=== PATIENT | male | born 1955 ===

== ENCOUNTER → 2018-04-12 | Outpatient (CLI) | payer BC ==
--- NOTE | 2018-04-12 13:51 | CT ---
EXAMINATION TYPE: CT chest w con DATE OF EXAM: 04/12/2018 COMPARISON: None HISTORY: 62-year-old male with Lung nodule TECHNIQUE: Contiguous axial scanning of the chest after the administration of 100 ml mL of Isovue 300 . Coronal/sagittal reconstructions performed. CT DLP: 551mGycm. Automatic exposure control utilized for a dose reduction. FINDINGS: Heart normal size without pericardial effusion. Ascending aorta mildly ectatic at 3.6 cm. Conventional arch vessel branching anatomy. No thoracic lymphadenopathy. Trace bilateral gynecomastia incidentally noted. Some mild strandy atelectasis in the lower lungs. There is a 3 mm subpleural nodule in the posterolateral left lower lobe, axial image 50. Benign etiol ogy is suspected. Second area of 3 mm nodularity peripheral left midlung, axial image 33 Visualized upper abdomen shows some cortical cysts in the upper pole right kidney measuring up to 1.5 cm. Bones: Mild pectus excavatum deformity. IMPRESSION: A couple tiny 3 mm pulmonary nodules on the left. A benign etiology is suspected. One-year follow-up can be performed to reassess. This exam can be reviewed with addendum if the patient previously had a n outside exam that demonstrated a suspicious pulmonary nodule.
== END ==
LOC: RADCTMAIN 13:06
PROVIDERS: ATTEND Family Medicine
DX: R91.8 Other nonspecific abnormal finding of lung field (principal)
CPT/HCPCS: 71260; Q9967

== ENCOUNTER → 2019-04-27 | Outpatient (CLI) | payer MEDICARE ==
[2019-04-27 14:17] LABS: African American GFR (CKD) >90 (>60 ml/min/1.73 sqM); Blood Urea Nitrogen 21 mg/dL (9-20)
--- NOTE | 2019-05-01 17:10 | CT ---
EXAMINATION TYPE: CT chest w con DATE OF EXAM: 04/27/2019 COMPARISON: Prior chest CT 04/12/2018, 09/21/2016 HISTORY: Previous abnormal exam lung gomez, Lung nodule CT DLP: 266.60 mGycm Automated exposure control for dose reduction was used. CONTRAST: CT scan of the chest is performed with IV Contrast, patient injected with 100 ml mL of Isovue 300. FINDINGS: LUNGS: The lungs are stable, there is no concerning parenchymal mass or nodule identified. Small nodu les at the lung bases are unchanged. There is no pleural effusion or pneumothorax seen. The trache obronchial tree is patent. MEDIASTINUM: There are no greater than 1 cm hilar or mediastinal lymph nodes. No pericardial effusi on is seen. AORTA: No additional significant abnormality is seen. OTHER: No additional significant abnormality is seen. IMPRESSION: Stable benign CT.
== END | disposition home or self-care (01) ==
LOC: RADCTMAIN 13:21
PROVIDERS: ATTEND Family Medicine
DX: R91.8 Other nonspecific abnormal finding of lung field (principal)
CPT/HCPCS: 82565; 84520; 71260; Q9967

== ENCOUNTER → 2020-01-29 | Outpatient (CLI) | payer MEDICARE ==
[2020-01-29 19:12] LABS: African American GFR (CKD) >90 (>60 ml/min/1.73 sqM); Blood Urea Nitrogen 28 mg/dL (9-20); Non-African American GFR(CKD) >90 (>60 ml/min/1.73 sqM)
--- NOTE | 2020-01-29 22:40 | CT ---
EXAMINATION TYPE: CT chest w con DATE OF EXAM: 01/29/2020 COMPARISON: 04/27/2019, 04/12/2018 HISTORY: Follow up for lung nodule. CT DLP: 259.5 mGycm, Automated exposure control for dose reduction was used. CONTRAST: Performed injected with 100ml mL of Isovue 300. TECHNIQUE: Axial images were obtained at 5 mm thick sections. Reconstructed images are reviewed on [employer] computer in the coronal plane. FINDINGS: Portion of the thyroid visualized is normal. No suspicious lung nodules or focal infiltrates are present. The tiny subpleural nodule along the pos terior lateral left lung base is stable. A 0.4 cm nodule, series 4 image 37, is essentially stable fr om comparison. No enlarged mediastinal or hilar adenopathy is evident. The ascending aorta diameter at the level o f the main pulmonary artery is 3.8 cm. The main pulmonary artery diameter at the bifurcation is 2.[address] sections are obtained through the upper abdomen. Abdomen is essentially unremarkable. IMPRESSIONS: 1. Stable small left lung nodules from March 2018. 2. No suspicious acute changes.
== END ==
LOC: RADCTMAIN 18:44
PROVIDERS: ATTEND Family Medicine
DX: R91.8 Other nonspecific abnormal finding of lung field (principal)
CPT/HCPCS: 82565; 84520; 71260; 36415; Q9967

== ENCOUNTER → 2021-05-05 | Outpatient (CLI) | payer MEDICARE ==
[2021-05-05 18:49] LABS: African American GFR (CKD) >90 (>60 ml/min/1.73 sqM); Blood Urea Nitrogen 22 mg/dL (9-20); Non-African American GFR(CKD) 85 (>60 ml/min/1.73 sqM)
--- NOTE | 2021-05-05 19:56 | CT ---
EXAMINATION TYPE: CT chest w con DATE OF EXAM: 05/05/2021 COMPARISON: 01/29/2020, 04/12/2018 HISTORY: lung nodule CT DLP: 833.5 mGycm Automated exposure control for dose reduction was used. TECHNIQUE: CT scan of the chest is performed with IV Contrast, patient injected with 100 mL of Isovue 300. MIP Images are created on CT scanner and reviewed. 3D reconstructed images are created on an independent workstation and reviewed. FINDINGS: LUNGS: The lungs are grossly clear, there is no concerning parenchymal mass or nodule identified. T here is a 2 mm nodule in the left lower lobe and subpleural 2 mm nodule essentially unchanged from pr ior exam. No new pulmonary nodules. Underlying mild emphysematous changes suggested. Correlate for CO PD. There is no pleural effusion or pneumothorax seen. The tracheobronchial tree is patent. MEDIASTINUM: There are no greater than 1 cm hilar or mediastinal lymph nodes. No pericardial effusi on is seen. OTHER: Hypertrophic and degenerative changes spine. IMPRESSION: 1. Stable sub-5 mm tiny left lower lobe pulmonary nodules. Given they are stable dating back to 2018 they are benign.
--- NOTE | 2021-05-06 09:21 | CT ---
EXAMINATION TYPE: CT abdomen wo/w con DATE OF EXAM: 05/05/2021 COMPARISON: None HISTORY: right flank pain CT DLP: 833.5 mGycm Automated exposure control for dose reduction was used. TECHNIQUE: Helical acquisition of images was performed from the lung bases through the top of iliac crest to include entire abdomen. CONTRAST: Performed with Oral Contrast and with IV Contrast, patient injected with 100 mL of Isovue 300. FINDINGS: LUNG BASES: No significant abnormality is appreciated. LIVER/GB: Very mild central biliary dilation. No definite gallstone.. PANCREAS: No significant abnormality is seen. SPLEEN: No significant abnormality is seen. ADRENALS: No significant abnormality is seen. KIDNEYS: Mild right hydronephrosis. No nephrolithiasis. Hydroureter to level visualized in the pelvis . Hypodense lesion involving the right kidney are too small to characterize with the exception of a 2 .1 cm upper pole right renal lesion Hounsfield unit measurement of 8 compatible with simple cyst.. BOWEL: Nonspecific LYMPH NODES: No significant abnormality is seen. OSSEOUS STRUCTURES: Hypertrophic and degenerative changes spine. FREE AIR: No free air is visualized. OTHER: Visualized aorta of normal caliber. Atherosclerotic changes noted. IMPRESSION: 1. Mild right hydronephrosis. Unfortunately imaging is only of the abdomen does not include the pelvi s to determine if there is a distal ureteral calcification. No calcifications within the [id number] w. 2. Simple right renal cyst. 3. Very mild central biliary ductal dilation consider follow-up ultrasound of the gallbladder and rig ht upper quadrant.
== END | disposition home or self-care (01) ==
LOC: RADCTMAIN 18:01
PROVIDERS: ATTEND Family Medicine
DX: N13.30 Unspecified hydronephrosis (principal); N28.1 Cyst of kidney, acquired; K83.8 Other specified diseases of biliary tract
CPT/HCPCS: 82565; 84520; 71260; 74170; 36415; Q9967

== ENCOUNTER → 2021-09-09 | Outpatient (CLI) | payer MEDICARE ==
[2021-09-09 14:48] LABS: African American GFR (CKD) >90 (>60 ml/min/1.73 sqM); Blood Urea Nitrogen 20 mg/dL (9-20); Non-African American GFR(CKD) 89 (>60 ml/min/1.73 sqM)
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
== END | disposition home or self-care (01) ==
LOC: RADCTMAIN 13:46
PROVIDERS: ATTEND Family Medicine
DX: S06.0X9A Concussion with loss of consciousness of unspecified duration, initial encounter (principal); W22.8XXA Striking against or struck by other objects, initial encounter
CPT/HCPCS: 82565; 84520; 70460; 36415; Q9967

== ENCOUNTER → 2022-02-09 | Outpatient (CLI) | payer MEDICARE ==
--- NOTE | 2022-02-09 13:13 | CT ---
EXAMINATION TYPE: CT soft tissue neck wo con CT DLP: 341.1 mGycm, Automated exposure control for dose reduction was used. DATE OF EXAM: 02/09/2022 12:50 PM COMPARISON: CT brain 09/09/2021, CT chest 05/05/2021. CLINICAL INDICATION:Male, 66 years old with history of R22.1 Swelling, mass and lump neck; right neck pain. TECHNIQUE: Standard CT of the neck without administration of contrast. Axial sections with coronal a nd sagittal reformats were obtained. Evaluation is limited due to lack of IV contrast. FINDINGS: Brain: Visualized portions are grossly unremarkable. Orbits: Unremarkable Sinuses: Grossly unremarkable. Spaces of the neck: Clear and symmetric. Coarse calcification along the left base of the tongue. Musculoskeletal: Degenerative disc disease changes of the visualized spine are present most prominent ly at C4-C7. Posterior disc osteophyte complexes demonstrated at C4-C5 and C5-C6 with suggested mild spinal canal narrowing. Straightening of the cervical spine which may be due to patient position vers us muscle spasm. Lymph nodes: Multiple nonenlarged lymph nodes are seen along both anterior chains of the neck. Vascular structures: Minimal atherosclerotic calcifications of the internal carotid arteries. Thoracic Inlet/airway: Airway is patent. The lung apices are clear. Soft tissues/Thyroid: Thyroid and remainder of the soft tissues are unremarkable. Other: none. IMPRESSION 1. No acute process within the limitations of a noncontrast exam. 2. Mild degenerative disc disease.
== END | disposition home or self-care (01) ==
LOC: RADCTMAIN 12:30
PROVIDERS: ATTEND Family Medicine
DX: R22.1 Localized swelling, mass and lump, neck (principal); M50.323 Other cervical disc degeneration at C6-C7 level
CPT/HCPCS: 70490

== ENCOUNTER → 2022-10-15 | Outpatient (CLI) | payer MEDICARE ==
--- NOTE | 2022-10-15 14:50 | NM ---
EXAMINATION TYPE: NM bone scan whole body DATE OF EXAM: 10/15/2022 COMPARISON: NONE HISTORY: M25.551 Delayed whole-body scanning was performed following the injection of 22.9 mCi Tc 99m MDP. Images acq uired 3 hours post injection. FINDINGS: There is degenerative uptake seen about the shoulders, sternoclavicular joints, L5-S1 levels as well as the bilateral hips and knees. No intense uptake to suggest bony metastatic disease or acute fractu re. IMPRESSION: Degenerative uptake
== END | disposition home or self-care (01) ==
LOC: RADNMMAIN 10:45
PROVIDERS: ATTEND Family Medicine
DX: M19.011 Primary osteoarthritis, right shoulder (principal); M25.551 Pain in right hip
CPT/HCPCS: 78306; A9503

== ENCOUNTER → 2023-11-16 | Outpatient (CLI) | payer MEDICARE ==
[2023-11-16 16:48] LABS: African American GFR (CKD) >90 (>60 ml/min/1.73 sqM); Blood Urea Nitrogen 30 mg/dL (9-20); Non-African American GFR(CKD) 84 (>60 ml/min/1.73 sqM)
--- NOTE | 2023-11-16 17:43 | CT ---
EXAMINATION TYPE: CT abdomen pelvis w con CT DLP: 441.6 mGycm, Automated exposure control for dose reduction was used. DATE OF EXAM: 11/16/2023 5:31 PM COMPARISON: None CLINICAL INDICATION:Male, 68 years old with history of K81.9 CHOLECYSTITIS, UNSPECIFIED; RUQ abdomina l pain radiates towards back x 5 weeks TECHNIQUE: Axial CT abdomen pelvis w con;Sagittal and coronal reformats were created on a separate w orkstation. Contrast used:100 cc mL of Isovue 300 with IV Contrast, (none if empty) Oral contrast used: with Oral Contrast (none if empty) FINDINGS: LOWER CHEST: Unremarkable ABDOMEN LIVER: Unremarkable GALLBLADDER AND BILE DUCTS: Unremarkable. PANCREAS: Unremarkable. SPLEEN: Unremarkable. ADRENAL GLANDS: Unremarkable. KIDNEYS AND URETERS: No evidence of hydronephrosis or renal calculus. The ureters are unremarkable. PELVIS BLADDER: Unremarkable REPRODUCTIVE: Prostate is enlarged in size measuring 5.5 cm in transverse dimension. ABDOMEN & PELVIS STOMACH AND BOWEL: No evidence of bowel obstruction. Moderate to large amount stool within the colon. The appendix is not definitively visualized. PERITONEUM/RETROPERITONEUM: No evidence of pneumoperitoneum or free fluid. VASCULATURE: No evidence of aortic aneurysm. MUSCULOSKELETAL: No acute osseous abnormalities LYMPH NODES: No gross evidence for lymphadenopathy. SOFT TISSUE/ABDOMINAL WALL: Unremarkable IMPRESSION: 1. No acute right upper quadrant process to explain the patient's pain. No cholelithiasis or evidenc e of cholecystitis. No evidence for obstructive uropathy or renal calculus. 2. Prostatomegaly, correlate serum PSA. 3. Moderate to large amount stool in the colon.
== END | disposition home or self-care (01) ==
LOC: RADCTMAIN 15:33
PROVIDERS: ATTEND Family Medicine
DX: N40.0 Benign prostatic hyperplasia without lower urinary tract symptoms (principal); K81.9 Cholecystitis, unspecified
CPT/HCPCS: 82565; 84520; 74177; 36415; Q9967

== ENCOUNTER → 2024-01-27 | Outpatient (CLI) | payer MEDICARE ==
--- NOTE | 2024-01-27 15:43 | MR ---
EXAMINATION TYPE: MR Prostate wo/w con DATE OF EXAM: 01/27/2024 10:10 AM COMPARISON: 11/16/2023, 10/15/2022. CLINICAL INDICATION:Male, 68 years old with history of C61 MALIGNANT NEOPLASM OF PROSTATE; Abnormal P SA elevation, prostate cancer. TECHNIQUE: Multi-planar, multi-sequence imaging of the pelvis is performed prior to and following the uncomplicated administration of bolus intravenous gadolinium. CONTRAST: 7 Gadavist Interpretive Criteria: PI-RADS v2.1 SERUM PSA: 6-24 = 7.26 SURGICAL PATHOLOGY: 05/19/2020 Positive biopsy left lateral apex and right posterior. FINDINGS: Prostatic dimensions: 4.5 x 5.3 x 3.6 cm. "Bullet" Volume:56.20 (PSA density=0.13 ng/mL/mL) CENTRAL GLAND (Central and Transition Zones/CZ+TZ): Multiple bilateral, heterogenous appearing hypertrophic stromal nodules, without suspicious lesion. M edian lobe hypertrophy with protrusion into the base of the bladder. (PI-RADS 2) PERIPHERAL ZONE (PZ): Bilateral linear, indistinct wedgelike areas of low ADC, and low T2 signal, No evidence of masslike a bnormality, or localized perfusional hypervascularity, to further suggest a focus of clinically signi ficant prostate cancer. (PI-RADS 2) SEMINAL VESICLES (SV): Symmetric and unremarkable. PERIPROSTATIC TISSUES: Unremarkable. LYMPH NODES: No enlarged pelvic lymph node. REMAINING PELVIS: Bladder wall is within normal limits given distention. No abnormal free or organized intrapelvic fluid collection. No pathologic bowel dilation or mural thickening. No hernia visualized OSSEOUS STRUCTURES: No suspicious osseous abnormality. IMPRESSION: 1. No specific features for high-risk prostate cancer. Maximum PI-RADS score: 2. 2. Moderate BPH, estimated gland volume 56.20 mL. 3. No suspicious osseous lesion. No lymphadenopathy. No evidence of prostate adenocarcinoma involving the periprostatic tissues.
== END | disposition home or self-care (01) ==
LOC: RADMRIMAIN 08:54
PROVIDERS: ATTEND Radiology Radiation Oncology
DX: C61 Malignant neoplasm of prostate (principal); N40.0 Benign prostatic hyperplasia without lower urinary tract symptoms
CPT/HCPCS: 72197; A9585

== ENCOUNTER → 2024-02-06 | Outpatient (CLI) | payer MEDICARE ==
[2024-02-06 16:31] LABS: HGB 14.2 g/dL (13.0-17.0); MCH 32.3 pg (27.0-32.0); MCHC 33.8 g/dL (32.0-37.0); MCV 95.5 FL (80.0-97.0); Mean Platelet Volume 10.4 FL (9.5-12.2); NRBC Per 100 WBC 0 X 10*3/uL (0.00-0.01); Platelet Count 223 X 10*3/uL (140-440); RDW 12.6 % (11.5-14.5); WBC 4.62 X 10*3/uL (4.50-10.00)
[2024-02-06 17:26] LABS: Chol/HDL Ratio 2.01 Ratio; Estradiol 38.4 pg/mL; LDL Cholesterol,Calculated 64.8 mg/dL (0.0-131.0); VLDL Calculation 9.02 mg/dL (5.00-40.00)
[2024-02-06 17:43] LABS: ALT 32 U/L (10-49); AST 26 U/L (14-35); Albumin 4.5 g/dL (3.8-4.9); Albumin/Globulin Ratio 2.14 Ratio (1.60-3.17); Alkaline Phosphatase 66 U/L (41-126); Bilirubin, Conjugated 0.41 mg/dL (0.20-0.40); Bilirubin,Unconjugated 1.49 mg/dL (0.20-1.00); Blood Urea Nitrogen 14.7 mg/dL (9.0-27.0); Calcium 9.2 mg/dL (8.7-10.3); Carbon Dioxide 27.9 mmol/L (21.6-31.8); Chloride 102 mmol/L (96-109); Globulin 2.1 g/dL (1.6-3.3); Glucose 103 mg/dL (70-110); Potassium 4.9 mmol/L (3.5-5.5); Sodium 140 mmol/L (135-145); Total Bilirubin 1.9 mg/dL (0.3-1.2); Total Protein 6.6 g/dL (6.2-8.2)
== END | disposition home or self-care (01) ==
LOC: LABWHC1 08:08
PROVIDERS: ATTEND Surgery
DX: E29.1 Testicular hypofunction (principal)
CPT/HCPCS: 36415; 80048; 80061; 80076; 82088; 82670; 83835; 84153; 84244; 84403; 84436; 84443; 84479; 85027

== ENCOUNTER → 2024-02-20 | Outpatient (CLI) | payer MEDICARE ==
--- NOTE | 2024-04-04 14:10 | NM ---
Patient Wally Solorio ID [id number] Order # EXAMINATION TYPE: NM bone scan whole body DATE OF EXAM: 02/28/2024 COMPARISON: NONE HISTORY: Prostate cancer Delayed whole-body scanning was performed following the injection of 24.1 mCi Tc 99m MDP. Images wer e acquired 4 hours post injection. FINDINGS: The focus of radiotracer within the posterior left mid cervical spine. This is nonspecific and can be related to degenerative change. Solitary metastasis is unusual. There is mild diffuse uptake noted at the knees and ankles and elbows likely related to degenerative joint changes. There is mild uptake along the left aspect of the L4 region on the frontal projection. On oblique spo t images no suspicious abnormality identified to correspond to this finding. This is nonspecific. Cor relate with plain film or MRI. Otherwise, No suspicious uptake within the lumbar spine to suggest met astasis. On the frontal projection there is some mild ill-defined uptake within the right femoral neck. This i s not identified on spot oblique views. IMPRESSION: 1. No definite suspicious area for metastasis. See above discussion for a couple of nonspecific findi ngs within the lower lumbar spine and right hip. 2. Suspected degenerative changes posterior left mid cervical spine
== END | disposition home or self-care (01) ==
LOC: RADNMMAIN 07:14
PROVIDERS: ATTEND Radiology Radiation Oncology
DX: C61 Malignant neoplasm of prostate (principal)
CPT/HCPCS: 78306; A9503

== ENCOUNTER → 2024-07-12 | Outpatient (CLI) | payer MEDICARE ==
[2024-07-12 07:22] LABS: African American GFR (CKD) >90 (>60 ml/min/1.73 sqM); Blood Urea Nitrogen 18 mg/dL (9-20); Non-African American GFR(CKD) 87 (>60 ml/min/1.73 sqM)
--- NOTE | 2024-07-12 11:55 | NM ---
EXAMINATION TYPE: NM bone scan whole body DATE OF EXAM: 07/12/2024 COMPARISON: 02/20/2024 CLINICAL INDICATION: Male, 69 years old with history of C61 MALIGNANT NEOPLASM OF PROSTATE; TECHNIQUE: Delayed whole-body scanning was performed following the injection of 23.1 mCi Tc 99m MDP. Images acquired 3 hours post injection. FINDINGS: Degenerative tracer activity at both shoulders and along the posterior elements of the left upper cer vical spine. Some periodontal disease is suggested. Suspect degenerative endplate change toward the l eft at L4-L5. Some focal increased activity at the right acetabular roof likely on a degenerative bas is. No suspicious distribution of tracer is identified. IMPRESSION: Scattered degenerative tracer activity as noted above. No scintigraphic evidence for osseous metastat ic disease. [facility], , 07/12/2024 11:53 AM
--- NOTE | 2024-07-13 19:09 | CT ---
EXAMINATION TYPE: CT abdomen pelvis wo/w con DATE OF EXAM: 07/12/2024 8:23 AM COMPARISON: 11/16/2023 CLINICAL INDICATION: Male, 69 years old with history of C61 MALIGNANT NEOPLASM OF PROSTATE; Hx prosta te ca, routine follow up TECHNIQUE: Axial CT abdomen pelvis wo/w con;Sagittal and coronal reformats were created on a [employer] workstation. Contrast used:100 mL of Isovue 300 with IV Contrast, (none if empty) Oral contrast used: with Oral Contrast (none if empty) CT DLP: 738.60 mGycm, Automated exposure control for dose reduction was used. FINDINGS: LOWER CHEST: Unremarkable ABDOMEN LIVER: Unremarkable GALLBLADDER AND BILE DUCTS: Unremarkable. PANCREAS: Unremarkable. SPLEEN: Unremarkable. ADRENAL GLANDS: Unremarkable. KIDNEYS AND URETERS: No evidence of hydronephrosis or renal calculus. The ureters are unremarkable. Simple appearing right renal cyst. PELVIS BLADDER: No evidence for wall thickening or mass given limitations of exam. REPRODUCTIVE: High density biopsy spacer material noted posterior to the prostate gland anterior to t he rectum. Gland measures up to 1.8 cm in transverse dimension. ABDOMEN & PELVIS STOMACH AND BOWEL: No evidence of bowel obstruction. Large amount of stool in the colon. PERITONEUM/RETROPERITONEUM: No evidence of pneumoperitoneum or free fluid. VASCULATURE: No evidence of aortic aneurysm. MUSCULOSKELETAL: No acute osseous abnormalities. Mild disc degeneration changes are present throughou t the thoracolumbar spine. Suspected bone island in the bilateral femoral heads. No suspicious osseou s lesions identified.. LYMPH NODES: No gross evidence for lymphadenopathy. SOFT TISSUE/ABDOMINAL WALL: Unremarkable IMPRESSION: 1. Postbiopsy changes around the prostate gland, No lymphadenopathy identified. No suspicious osseou s lesions. 2. Prostatomegaly. 3. Large amount stool throughout colon. [facility], , 07/13/2024 7:06 PM
== END | disposition home or self-care (01) ==
LOC: RADNMMAIN 06:20
PROVIDERS: ATTEND Radiology Radiation Oncology
DX: C61 Malignant neoplasm of prostate (principal); N40.0 Benign prostatic hyperplasia without lower urinary tract symptoms; R19.5 Other fecal abnormalities
CPT/HCPCS: 82565; 84520; 74178; 36415; 78306; A9503; Q9967

== ENCOUNTER → 2024-10-09 | Outpatient (CLI) | payer MEDICARE | END | disposition home or self-care (01) | LOC: LABWHC1 10:34 | PROVIDERS: ATTEND Radiology Radiation Oncology | DX: Z53.9 Procedure and treatment not carried out, unspecified reason (principal) ==

== ENCOUNTER → 2024-10-18 | Outpatient (CLI) | payer MEDICARE ==
[2024-10-18 18:45] LABS: Reticulocyte % 1.11 % (0.10-1.80)
[2024-10-18 19:26] LABS: % Iron Saturation 30.75 (15.00-50.00); ALT 27 U/L (10-49); AST 22 U/L (14-35); Albumin 4.2 g/dL (3.8-4.9); Albumin/Globulin Ratio 1.68 Ratio (1.60-3.17); Alkaline Phosphatase 72 U/L (41-126); Amylase 64 U/L (23-121); BUN/Creat Ratio 21.22 Ratio (12.00-20.00); Blood Urea Nitrogen 19.1 mg/dL (9.0-27.0); C Reactive Protein <0.30 mg/dL (0.00-0.80); Calcium 9.1 mg/dL (8.7-10.3); Carbon Dioxide 26.4 mmol/L (21.6-31.8); Chloride 103 mmol/L (96-109); Globulin 2.5 g/dL (1.6-3.3); Glucose 145 mg/dL (70-110); Iron 111 UG/DL (65-175); LDH 192 U/L (120-246); LDL Cholesterol,Calculated 63.3 mg/dL (0.0-131.0); Lipase 36 U/L (14-60); Potassium 4.9 mmol/L (3.5-5.5); Rheumatoid Factor, Qnt <15 IU/mL (0-15); Sodium 141 mmol/L (135-145); Total Bilirubin 1.4 mg/dL (0.3-1.2); Total Iron Binding Capacity 361 UG/DL (228-460); Total Protein 6.7 g/dL (6.2-8.2); Uric Acid 4.6 mg/dL (3.7-8.7)
[2024-10-18 19:42] LABS: Haptoglobin 52.8 mg/dL (31.2-198.0)
[2024-10-18 21:03] LABS: Protein, Total 6.4 g/dL (6.2-8.2)
[2024-10-18 21:48] LABS: Appearance,Urine Clear (Clear); Bilirubin,Urine Negative (Negative); Blood,Urine Negative (Negative); Color,Urine Yellow (Yellow); Ketones,Urine Negative (Negative); Nitrite,Urine Negative (Negative); PH, Urine 6.5; Specific Gravity,Urine 1.016 (1.001-1.030); Urobilinogen,Urine 0.2 E.U./DL
[2024-10-18 21:49] LABS: Bacteria,Urine None Seen (None Seen)
[2024-10-18 22:17] LABS: Basophils # (A) 0.04 X 10*3/uL (0.00-0.10); Basophils % (A) 0.8 %; Eosinophils # (A) 0.06 X 10*3/uL (0.04-0.35); Eosinophils % (A) 1.2 %; HCT 41.4 % (39.6-50.0); HGB 13.7 g/dL (13.0-17.0); Lymphocytes % (A) 10.4 %; MCH 32.4 pg (27.0-32.0); MCHC 33.1 g/dL (32.0-37.0); MCV 97.9 FL (80.0-97.0); Mean Platelet Volume 11.8 FL (9.5-12.2); Monocytes # (A) 0.36 X 10*3/uL (0.20-1.00); Monocytes % (A) 7.5 %; NRBC Per 100 WBC 0 X 10*3/uL (0.00-0.01); Neutrophils # (A) 3.84 X 10*3/uL (1.80-7.70); Neutrophils % (A) 79.7 %; Platelet Count 184 X 10*3/uL (140-440); RBC 4.23 X 10*6/uL (4.40-5.60); RDW 13.3 % (11.5-14.5); WBC 4.82 X 10*3/uL (4.50-10.00)
[2024-10-18 22:50] LABS: Erythrocyte Sedimentation Rate 7 mm/Hr (0-20)
== END | disposition home or self-care (01) ==
LOC: LABWHC1 13:32
PROVIDERS: ATTEND Internal Medicine
DX: Z13.220 Encounter for screening for lipoid disorders (principal); D72.819 Decreased white blood cell count, unspecified; R59.0 Localized enlarged lymph nodes; R91.8 Other nonspecific abnormal finding of lung field; R63.4 Abnormal weight loss; R35.0 Frequency of micturition
CPT/HCPCS: 36415; 80053; 80061; 81001; 82150; 82378; 82728; 82784; 82785; 83010; 83036; 83540; 83550; 83615; 83690; 84165; 84550; 85025; 85045; 85652; 86038; 86140; 86334; 86335; 86431

== ENCOUNTER → 2024-11-14 | Outpatient (CLI) | payer MEDICARE ==
[2024-11-14 15:41] LABS: HCT 39.2 % (39.6-50.0); MCH 32.4 pg (27.0-32.0); MCHC 33.2 g/dL (32.0-37.0); MCV 97.8 FL (80.0-97.0); Mean Platelet Volume 11.8 FL (9.5-12.2); NRBC Per 100 WBC 0 X 10*3/uL (0.00-0.01); Platelet Count 183 X 10*3/uL (140-440); RBC 4.01 X 10*6/uL (4.40-5.60); RDW 13.2 % (11.5-14.5); WBC 4.84 X 10*3/uL (4.50-10.00)
[2024-11-14 15:46] LABS: ALT 24 U/L (10-49); AST 21 U/L (14-35); Albumin 4.1 g/dL (3.8-4.9); Albumin/Globulin Ratio 1.95 Ratio (1.60-3.17); Alkaline Phosphatase 74 U/L (41-126); BUN/Creat Ratio 27.78 Ratio (12.00-20.00); Bilirubin, Conjugated 0.51 mg/dL (0.20-0.40); Bilirubin,Unconjugated 0.69 mg/dL (0.20-1.00); Chloride 102 mmol/L (96-109); Globulin 2.1 g/dL (1.6-3.3); Glucose 122 mg/dL (70-110); Phosphorus 3.6 mg/dL (2.4-5.1); Potassium 4.5 mmol/L (3.5-5.5); Prostate Specific Antigen 2.83 ng/mL (0.000-6.500); Sodium 138 mmol/L (135-145); Total Bilirubin 1.2 mg/dL (0.3-1.2); Total Protein 6.2 g/dL (6.2-8.2)
== END | disposition home or self-care (01) ==
LOC: LABWHC1 10:22
PROVIDERS: ATTEND Surgery
DX: C61 Malignant neoplasm of prostate (principal)
CPT/HCPCS: 36415; 80048; 80076; 82306; 83735; 84100; 84153; 84403; 85027

== ENCOUNTER → 2025-01-07 | Outpatient (CLI) | payer MEDICARE | END | disposition home or self-care (01) | LOC: LABWHC1 14:06 | PROVIDERS: ATTEND Radiology Radiation Oncology | DX: C61 Malignant neoplasm of prostate (principal); Z87.891 Personal history of nicotine dependence | CPT/HCPCS: 36415; 84153 ==

== ENCOUNTER → 2025-01-21 | Outpatient (CLI) | payer MEDICARE | END | disposition home or self-care (01) | LOC: LABWHC1 09:01 | PROVIDERS: ATTEND Radiology Radiation Oncology | DX: C61 Malignant neoplasm of prostate (principal); Z87.891 Personal history of nicotine dependence | CPT/HCPCS: 36415; 84153 ==